=== PATIENT | female | born 1970 | race Caucasian/White ===

== ENCOUNTER 2021-02-13 09:37 | Emergency (ER) | payer OTHER ==
[~2021-02-13 09:37] MED LIST: IBUPROFEN600 MG PO; LORTAB 5-325 M1 EACH PO; NORCO 5-325 TA1 EACH PO; PERCOCET 5/325 T1 EA PO; ZOFRAN ODT 4 MG4 MG GT
[2021-02-13 11:02] LABS: BUN/CREATININE RATIO 24 (0-10)
[2021-02-13 11:31] LABS: HEMOGLOBIN 14.7 gm/dl (12.3-15.3); RED BLOOD COUNT 4.78 M/UL (4.00-5.10); WHITE BLOOD COUNT 6.6 K/UL (4.5-11.0)
== END 2021-02-13 14:30 | disposition home or self-care (01) ==
LOC: ER1 09:37
PROVIDERS: Nurse Practitioner
DX: R07.9 Chest pain, unspecified (principal); Z90.710 Acquired absence of both cervix and uterus
CPT/HCPCS: 71045; 80053; 82550; 82553; 83735; 83874; 84484; 85025; 93005; 96374; 99285; J1885